=== PATIENT | female | born 1960 | race Hispanic/Latino ===

== ENCOUNTER → 2017-08-26 | Outpatient (CLI) | payer OTHER, MEDICARE | END | disposition home or self-care (01) | LOC: RAH 07:59 | PROVIDERS: ATTEND Family Medicine | DX: R74.8 Abnormal levels of other serum enzymes (principal); Z90.49 Acquired absence of other specified parts of digestive tract | CPT/HCPCS: 76705 ==

== ENCOUNTER → 2017-12-15 | Outpatient (CLI) | payer OTHER, MEDICARE ==
[~2017-12-15] MED LIST: REGADENOSON 0.4 MG/5 ML PF SYG IVP SCH
== END | disposition home or self-care (01) ==
LOC: SHCH 07:44
PROVIDERS: ATTEND Internal Medicine Cardiovascular Disease
DX: I10 Essential (primary) hypertension (principal)
CPT/HCPCS: 78452; 93017; 96374; A9500 ×2; J2785

== ENCOUNTER → 2017-12-26 | Outpatient (CLI) | payer OTHER, MEDICARE | END | disposition home or self-care (01) | LOC: RAH 09:08 | PROVIDERS: ATTEND Internal Medicine Cardiovascular Disease | DX: K76.0 Fatty (change of) liver, not elsewhere classified (principal) | CPT/HCPCS: 76705 ==

== ENCOUNTER → 2018-08-04 | Outpatient (CLI) | payer OTHER, MEDICARE ==
[~2018-08-04] MED LIST changes: +AMLO5TAB9 PO; +IBUP-2070 PO; +INSLAN SQ; +INSU100C14 SQ; +LORA0.5T2 PO; +LOSA100T58 PO; +METF-446 PO; +METO50 PO; -REGADENOSON 0.4 MG/5 ML PF SYG IVP SCH
== END | disposition home or self-care (01) ==
LOC: RAH 08:57
PROVIDERS: ATTEND Internal Medicine Cardiovascular Disease
DX: R60.0 Localized edema (principal)
CPT/HCPCS: 93971

== ENCOUNTER → 2018-12-22 | Outpatient (CLI) | payer OTHER, MEDICARE | END | disposition home or self-care (01) | LOC: SLP 20:20 | PROVIDERS: ATTEND Family Medicine | DX: G47.33 Obstructive sleep apnea (adult) (pediatric) (principal); I10 Essential (primary) hypertension; E11.9 Type 2 diabetes mellitus without complications; E66.9 Obesity, unspecified; Z68.36 Body mass index [BMI] 36.0-36.9, adult | CPT/HCPCS: 95810 ==

== ENCOUNTER → 2019-01-13 | Outpatient (CLI) | payer OTHER, MEDICARE | END | disposition home or self-care (01) | LOC: SLP 19:59 | PROVIDERS: ATTEND Family Medicine | DX: G47.33 Obstructive sleep apnea (adult) (pediatric) (principal); I10 Essential (primary) hypertension; E11.9 Type 2 diabetes mellitus without complications; E66.9 Obesity, unspecified; Z68.36 Body mass index [BMI] 36.0-36.9, adult | CPT/HCPCS: 95811 ==

== ENCOUNTER 2021-01-01 11:49 | Day surgery (SDC) | payer OTHER, MEDICARE ==
[~2021-01-01] VITALS: Ht 160 cm; Wt 90.7 kg
[~2021-01-01 11:49] MED LIST changes: +AMLO-257 PO; -AMLO5TAB9 PO
[2021-01-06] MEDS ORDERED: ROSU5TAB12 PO (13:47)
[2021-01-06] MEDS ORDERED: RISP1TAB98 PO (13:47)
[2021-01-06] MEDS ORDERED: MELO-108 PO (13:47)
[2021-01-06] MEDS ORDERED: CYCL5TAB PO (13:47)
[2021-01-06] MEDS ORDERED: BUSP15TA3 PO (13:47)
[2021-01-06] MEDS ORDERED: SERT-440 PO (13:47)
[2021-01-06] MEDS ORDERED: BENZ0.5T43 PO (13:47)
[2021-01-06] MEDS ORDERED: GABA-529 PO (13:47)
[2021-01-06] MEDS ORDERED: OMEP40CA21 PO (13:47)
[2021-01-06] MEDS ORDERED: INS7030 SQ ×2 (13:47)
[2021-01-06] MEDS ORDERED: ROPI0.257 PO (13:47)
[2021-01-06 14:15] VITALS: BP 179/68
[2021-01-06 14:21] LABS: BASOPHILS % (AUTO) 0.7 % (0.0-5.0); EOSINOPHILS % (AUTO) 2.3 % (0.0-8.0); HEMATOCRIT 33.4 % (36-48); LYMPHOCYTES % (AUTO) 26.6 % (21.0-51.0); MEAN CORPUSCULAR HEMOGLOBIN 28.3 pg (27.0-33.0); MEAN CORPUSCULAR HGB CONC 32.9 g/dL (32.0-36.0); MEAN CORPUSCULAR VOLUME 85.9 fL (79-99); MONOCYTES % (AUTO) 6.3 % (3.0-13.0); NEUTROPHILS % (AUTO) 63.7 % (40.0-77.0); PLATELET COUNT (AUTO) 119 K/uL (130-400); RED BLOOD CELL COUNT(AUTO) 3.89 MIL/uL (4.00-5.50); RED CELL DISTRIBUTION WIDTH 13.5 % (11.0-15.5); WHITE BLOOD COUNT (AUTO) 6.8 K/uL (4.8-10.8)
[2021-01-06 14:23] LABS: APPEARANCE,URINE Clear (CLEAR); BILIRUBIN,URINE Negative (NEGATIVE); COLOR,URINE Yellow (YELLOW); GLUCOSE, URINE (UA) >=1000 mg/dL (NEGATIVE); KETONES,URINE Negative (NEGATIVE); LEUKOCYTE ESTERASE ,URINE Negative (NEGATIVE); NITRATE,URINE Negative (NEGATIVE); OCCULT BLOOD,URINE Negative (NEGATIVE); PH,URINE 5.5 (5.0-8.0); PROTEIN,URINE Negative (NEGATIVE); UROBILINOGEN,URINE 0.2 mg/dL (0.2-1.0)
[2021-01-06 14:30] LABS: BACTERIA,URINE Moderate /HPF (None Seen); RBC,URINE 0-1 /HPF (0-1)
[2021-01-06 14:31] LABS: SQUAMOUS EPITHELIAL CELL,UR Rare /HPF (0-2)
[2021-01-06 14:32] LABS: CREATININE 1.2 mg/dL (0.5-1.5); POTASSIUM 5.2 mmol/L (3.5-5.1)
[2021-01-06 14:33] LABS: PROTHROMBIN TIME 10.9 SEC (9.6-11.6)
[2021-01-06 14:34] LABS: PARTIAL THROMBOPLASTIN TIME 29.8 SEC (26.3-35.5)
[2021-01-07] MEDS ORDERED: 0.9% NACL 500ML IV.SOLN 500 ML IV SCH (06:00)
[2021-01-07] MEDS ORDERED: 0.9%NACL 1000ML 1,000 ML IV ONE (11:20)
[2021-01-07 12:00] VITALS: BP 166/53
[2021-01-07 12:50] LABS: POTASSIUM 5.2 mmol/L (3.5-5.1)
== END 2021-01-07 13:00 | disposition home or self-care (01) ==
LOC: DAH 11:49
PROVIDERS: ATTEND Internal Medicine Cardiovascular Disease
DX: Z01.818 Encounter for other preprocedural examination (principal); R06.00 Dyspnea, unspecified; Z79.01 Long term (current) use of anticoagulants
CPT/HCPCS: 36415 ×2; 71045; 80048 ×2; 81001; 82948; 85025; 85610; 85730; 87077; 87088; 87186; 93005; A4215; A4216; A4221; A4222; A4223 ×3; A4606; A4663; J7030

== ENCOUNTER 2021-02-18 10:21 | Inpatient (IN) | payer OTHER, MEDICARE ==
[2021-02-17 10:00] LABS: BASOPHILS % (AUTO) 0.4 % (0.0-5.0); EOSINOPHILS % (AUTO) 0.7 % (0.0-8.0); HEMATOCRIT 36.5 % (36-48); LYMPHOCYTES % (AUTO) 24.3 % (21.0-51.0); MEAN CORPUSCULAR HEMOGLOBIN 28.8 pg (27.0-33.0); MEAN CORPUSCULAR HGB CONC 32.3 g/dL (32.0-36.0); NEUTROPHILS % (AUTO) 68.8 % (40.0-77.0); PLATELET COUNT (AUTO) 153 K/uL (130-400); RED CELL DISTRIBUTION WIDTH 13.7 % (11.0-15.5); WHITE BLOOD COUNT (AUTO) 9.2 K/uL (4.8-10.8)
[2021-02-17 10:07] LABS: APPEARANCE,URINE Clear (CLEAR); BILIRUBIN,URINE Negative (NEGATIVE); COLOR,URINE Yellow (YELLOW); GLUCOSE, URINE (UA) Negative (NEGATIVE); KETONES,URINE Negative (NEGATIVE); LEUKOCYTE ESTERASE ,URINE Small (NEGATIVE); NITRATE,URINE Positive (NEGATIVE); OCCULT BLOOD,URINE Negative (NEGATIVE); PH,URINE 5.5 (5.0-8.0); PROTEIN,URINE Negative (NEGATIVE); UROBILINOGEN,URINE 0.2 mg/dL (0.2-1.0)
[2021-02-17 10:12] LABS: CREATININE 0.8 mg/dL (0.5-1.5); POTASSIUM 4.8 mmol/L (3.5-5.1)
[2021-02-17 10:13] LABS: INR 0.95 (0.85-1.15); PROTHROMBIN TIME 10.4 SEC (9.6-11.6)
[2021-02-17 10:13] LABS: BACTERIA,URINE Many /HPF (None Seen); RBC,URINE 0-1 /HPF (0-1); SQUAMOUS EPITHELIAL CELL,UR Rare /HPF (0-2)
[2021-02-17 10:14] LABS: PARTIAL THROMBOPLASTIN TIME 27.6 SEC (26.3-35.5)
[2021-02-17 14:47] VITALS: BP 170/80
[~2021-02-18] VITALS: Ht 160 cm; Wt 88.5 kg
[2021-02-18] VITALS (10 sets, daily range): BP systolic 79–156; BP diastolic 33–74
[~2021-02-18 10:21] MED LIST changes: +BENZ0.5T43 PO; +BUSP15TA3 PO; +CYCL5TAB PO; +GABA-529 PO; -IBUP-2070 PO; +INS7030 SQ; -INSLAN SQ; -INSU100C14 SQ; -LORA0.5T2 PO; +MELO-108 PO; +OMEP40CA21 PO; +RISP1TAB98 PO; +ROPI0.257 PO; +ROSU5TAB12 PO; +SERT-440 PO
[2021-02-18] MEDS ORDERED: 0.9%NACL 1000ML 1,000 ML IV ONE (10:44)
[2021-02-18] MEDS ORDERED: DEXTROSE 50%-WATER 50 ML DISP.SYRIN IV ONE ×2 (10:44→14:13)
[2021-02-18] MEDS ORDERED: DEXTROSE 50%-WATER 50 ML DISP.SYRIN IV PRN ×2 (14:30→19:00)
[2021-02-18] MEDS ORDERED: GLUCAGON 1MG KIT 1 MG ML IM PRN ×2 (14:30→19:00)
[2021-02-18] MEDS ORDERED: FENTANYL CITRATE PF 50 MCG/1 ML 2ML VIAL ONE (16:03)
[2021-02-18] MEDS ORDERED: MIDAZOLAM HCL 1 MG/ML 2ML VIAL ONE (16:03)
[2021-02-18] MEDS ORDERED: SODIUM BICARB 50MEQ 50ML VIAL 50 ML ONE (16:03)
[2021-02-18] MEDS ORDERED: IOHEXOL-350 50ML VIAL IV ONE (16:03)
[2021-02-18] MEDS ORDERED: IOHEXOL 350 MG/ML 100ML INFUS..BTL IV ONE (16:03)
[2021-02-18] MEDS ORDERED: LIDOCAINE HCL 400MG/20ML VIAL ONE (16:03)
[2021-02-18] MEDS ORDERED: HEPARIN 10,000 UNIT/10ML (1,000 UNIT/ML) VIAL ONE (16:03)
[2021-02-18] MEDS ORDERED: NITROGLYCERIN 50MG VIAL IV ONE (16:04)
[2021-02-18] MEDS ORDERED: NICARDIPINE 25MG INJ IV ONE (17:08)
[2021-02-18] MEDS ORDERED: LABETALOL 20MG VIAL IV ONE (18:42)
[2021-02-18] MEDS ORDERED: 0.9%NACL 1000ML 1,000 ML IV SCH (19:00)
[2021-02-18] MEDS ORDERED: INSULIN REGULAR, HUMAN 3ML 100 UNIT in 0.9%NACL 100ML 99 ML IV PRN ×4 (19:00)
[2021-02-18] MEDS ORDERED: PHARMACY COMMUNICATION MISC SCH ×2 (19:30→21:00)
[2021-02-18] MEDS ORDERED: INSULIN HUMULIN R 100 UNIT/ML 3ML SQ SCH ×4 (21:00)
[2021-02-18] MEDS ORDERED: INSULIN LISPRO 100 UNIT/ML 3ML SQ SCH ×4 (21:00)
[2021-02-18] MEDS: ROPINIROLE HCL 0.25 MG TABLET PO SCH (21:00)
[2021-02-18] MEDS: METOPROLOL TARTRATE 50 MG TAB PO SCH (21:01)
[2021-02-18] MEDS: RISPERIDONE 1 MG TABLET PO SCH (21:01)
[2021-02-18] MEDS: GABAPENTIN 100 MG CAPSULE PO SCH (21:01)
[2021-02-18] MEDS: BENZTROPINE 0.5MG TAB PO SCH (22:06)
[2021-02-19] MEDS ORDERED: INSULIN HUMULIN R 100 UNIT/ML 3ML SQ SCH ×4
[2021-02-19] MEDS ORDERED: INSULIN LISPRO 100 UNIT/ML 3ML SQ SCH ×4
[2021-02-19 04:10] VITALS: BP 124/68
[2021-02-19 04:21] LABS: BASOPHILS % (AUTO) 0.6 % (0.0-5.0); EOSINOPHILS % (AUTO) 0.6 % (0.0-8.0); HEMATOCRIT 32.1 % (36-48); LYMPHOCYTES % (AUTO) 27.4 % (21.0-51.0); MEAN CORPUSCULAR HEMOGLOBIN 28.7 pg (27.0-33.0); MEAN CORPUSCULAR HGB CONC 32.4 g/dL (32.0-36.0); MEAN CORPUSCULAR VOLUME 88.7 fL (79-99); MONOCYTES % (AUTO) 6.9 % (3.0-13.0); NEUTROPHILS % (AUTO) 64.2 % (40.0-77.0); PLATELET COUNT (AUTO) 125 K/uL (130-400); RED BLOOD CELL COUNT(AUTO) 3.62 MIL/uL (4.00-5.50); RED CELL DISTRIBUTION WIDTH 14.2 % (11.0-15.5); WHITE BLOOD COUNT (AUTO) 6.6 K/uL (4.8-10.8)
[2021-02-19 04:34] LABS: INR 1.04 (0.85-1.15); PROTHROMBIN TIME 11.3 SEC (9.6-11.6)
[2021-02-19 04:36] LABS: PARTIAL THROMBOPLASTIN TIME 26.3 SEC (26.3-35.5)
[2021-02-19 04:37] LABS: CREATININE 1.1 mg/dL (0.5-1.5); MAGNESIUM 1.7 mg/dL (1.80-2.40); PHOSPHORUS 4.2 mg/dL (2.5-4.9); POTASSIUM 4.3 mmol/L (3.5-5.1)
[2021-02-19 05:07] LABS: HEMOGLOBIN A1C 8.4 % (4.0-6.0)
[2021-02-19] MEDS: INSULIN R PO SS1/2 SQ SCH ×4 (06:32→20:59)
[2021-02-19 08:07] VITALS: BP 128/64
[2021-02-19] MEDS: AMLODIPINE 5 MG TAB PO SCH (08:13)
[2021-02-19] MEDS: METOPROLOL TARTRATE 50 MG TAB PO SCH ×2 (08:13→20:49)
[2021-02-19] MEDS: GABAPENTIN 100 MG CAPSULE PO SCH ×2 (08:14→20:49)
[2021-02-19] MEDS: LOSARTAN 100 MG TABLET PO SCH (08:14)
[2021-02-19] MEDS: FAMOTIDINE 20MG TAB PO SCH (08:14)
[2021-02-19 12:06] VITALS: BP 141/65
[2021-02-19 16:21] VITALS: BP 158/73
[2021-02-19 20:00] VITALS: BP 155/64
[2021-02-19] MEDS: ROPINIROLE HCL 0.25 MG TABLET PO SCH (20:48)
[2021-02-19] MEDS: BENZTROPINE 0.5MG TAB PO SCH (20:48)
[2021-02-19] MEDS: RISPERIDONE 1 MG TABLET PO SCH (20:48)
[2021-02-20] VITALS (13 sets, daily range): BP systolic 108–163; BP diastolic 49–67
[2021-02-20 05:34] LABS: HEMATOCRIT 32.6 % (36-48); MEAN CORPUSCULAR HEMOGLOBIN 28.9 pg (27.0-33.0); MEAN CORPUSCULAR HGB CONC 32.2 g/dL (32.0-36.0); MEAN CORPUSCULAR VOLUME 89.8 fL (79-99); RED BLOOD CELL COUNT(AUTO) 3.63 MIL/uL (4.00-5.50); RED CELL DISTRIBUTION WIDTH 13.9 % (11.0-15.5); WHITE BLOOD COUNT (AUTO) 6.3 K/uL (4.8-10.8)
[2021-02-20 05:48] LABS: PROTHROMBIN TIME 10.9 SEC (9.6-11.6)
[2021-02-20 05:49] LABS: PARTIAL THROMBOPLASTIN TIME 26.4 SEC (26.3-35.5)
[2021-02-20 05:50] LABS: ALBUMIN 3.4 g/dL (3.5-5.0); BILIRUBIN,TOTAL 0.3 mg/dL (0.2-1.0); CREATININE 0.9 mg/dL (0.5-1.5); POTASSIUM 4.7 mmol/L (3.5-5.1)
[2021-02-20] MEDS: INSULIN R PO SS1/2 SQ SCH (06:06)
[2021-02-20] MEDS ORDERED: AMINOCAPROIC ACID 5,000MG VIAL 15,000 MG in 0.9% NACL 500ML IV.SOLN 420 ML IV PRN (07:00)
[2021-02-20] MEDS ORDERED: EPINEPHRINE PF 1MG AMP 10 MG in 0.9% NACL 250ML 240 ML IV PRN (07:00)
[2021-02-20] MEDS ORDERED: NOREPINEPHRINE BITARTRATE 8 MG in 0.9% NACL 250ML 250 ML IV PRN (07:00)
[2021-02-20] MEDS: AMLODIPINE 5 MG TAB PO SCH (09:00)
[2021-02-20] MEDS: LOSARTAN 100 MG TABLET PO SCH (09:00)
[2021-02-20] MEDS: FAMOTIDINE 20MG TAB PO SCH (09:00)
[2021-02-20] MEDS: GABAPENTIN 100 MG CAPSULE PO SCH (09:00)
[2021-02-20] MEDS ORDERED: NITROGLYCERIN 50MG/D5W 250ML 1 BOT ONE (09:01)
[2021-02-20] MEDS ORDERED: OCTYL 2-CYANOACRYLATE 1 EACH TP ONE (09:08)
[2021-02-20] MEDS ORDERED: CEFAZOLIN SODIUM 1 GM VIAL ONE (09:08)
[2021-02-20] MEDS ORDERED: PAPAVERINE HCL 30 MG/ML 2ML VIAL ONE (09:09)
[2021-02-20] MEDS: METOPROLOL TARTRATE 50 MG TAB PO SCH (09:13)
[2021-02-20] MEDS ORDERED: HEPARIN 10,000 UNIT/10ML (1,000 UNIT/ML) VIAL ONE ×2 (09:27→11:09)
[2021-02-20] MEDS ORDERED: ESMOLOL HCL 10 MG/ML 10 ML VIAL ONE (09:27)
[2021-02-20] MEDS ORDERED: SODIUM BICARB 50MEQ 50ML VIAL 150 ML ONE (09:27)
[2021-02-20] MEDS ORDERED: PROPOFOL 10 MG/ML 20ML VIAL IV ONE (09:27)
[2021-02-20] MEDS ORDERED: AMINOCAPROIC ACID 5,000MG VIAL ONE (09:27)
[2021-02-20] MEDS ORDERED: MIDAZOLAM HCL 1 MG/ML 2ML VIAL ONE (09:27)
[2021-02-20] MEDS ORDERED: NOREPINEPHRINE BITARTRATE 1 MG/1 ML ML IV ONE (09:27)
[2021-02-20] MEDS ORDERED: FENTANYL CITRATE PF 50 MCG/1 ML 20ML VIAL IJ ONE (09:27)
[2021-02-20] MEDS ORDERED: PROTAMINE SULFATE 10 MG/ML 25ML VIAL IV ONE (09:27)
[2021-02-20] MEDS ORDERED: EPINEPHRINE PF 1MG AMP ONE (09:27)
[2021-02-20] MEDS ORDERED: LIDOCAINE PF 100MG/5ML (2%) SYRINGE 5ML ONE (09:27)
[2021-02-20] MEDS ORDERED: ROCURONIUM 10MG/1ML SYR 10 MG/ML ML ONE (09:28)
[2021-02-20] MEDS ORDERED: CEFAZOLIN SODIUM 1 GM VIAL IVP PRN (09:30)
[2021-02-20] MEDS ORDERED: KETAMINE 50MG/ML SYRINGE 50 MG/ML DISP.SYRIN IV ONE (09:32)
[2021-02-20 11:19] LABS: ABG HCO3 22.9 mmol/L (21.0-28.0); ABG OXYGEN SATURATION 99.5 % (95.0-99.0); ABG PCO2 32 mmHg (32-45)
[2021-02-20] MEDS ORDERED: ACETAMINOPHEN 650 MG SUPPOSITORY RC PRN (13:00)
[2021-02-20] MEDS ORDERED: GLUCAGON 1MG KIT 1 MG ML IM PRN (13:00)
[2021-02-20] MEDS ORDERED: 0.9% NACL 500ML IV.SOLN 500 ML IV SCH (13:00)
[2021-02-20] MEDS ORDERED: ACETAMINOPHEN 325 MG TAB PO PRN (13:00)
[2021-02-20] MEDS ORDERED: DEXTROSE 50%-WATER 50 ML DISP.SYRIN IV PRN (13:00)
[2021-02-20] MEDS ORDERED: 0.9%NACL 1000ML 1,000 ML IV SCH (13:00)
[2021-02-20] MEDS ORDERED: PROPOFOL 1000 MG/100 ML 100 ML IV PRN (13:00)
[2021-02-20] MEDS ORDERED: ALBUMIN (HUMAN) 5% 250 ML IV PRN (13:00)
[2021-02-20] MEDS ORDERED: MORPHINE 2 MG SYG IV PRN ×2 (13:00→14:00)
[2021-02-20] MEDS ORDERED: AMINOCAPROIC ACID 5,000MG VIAL 15,000 MG in 0.9% NACL 250ML 250 ML IV SCH (13:00)
[2021-02-20] MEDS ORDERED: TRAMADOL HCL 50 MG TABLET PO PRN (13:00)
[2021-02-20] MEDS ORDERED: ONDANSETRON 4MG INJ IV PRN (13:00)
[2021-02-20] MEDS ORDERED: POTASSIUM PHOS 15 mMOL+NS250ML 250 ML IV PRN (13:00)
[2021-02-20] MEDS ORDERED: CALCIUM GLUC 1GM 1 GM in 0.9%NACL 50ML 50 ML IV PRN (13:00)
[2021-02-20] MEDS ORDERED: EPINEPHRINE PF 1MG AMP 10 MG in DEXTROSE 5%-WATER 250 ML IV PRN (13:00)
[2021-02-20] MEDS ORDERED: INSULIN REGULAR, HUMAN 3ML 100 UNIT in 0.9%NACL 100ML 99 ML IV SCH ×2 (13:00)
[2021-02-20] MEDS ORDERED: NITROGLYCERIN 50MG/D5W 250ML 250 BOT IV SCH (13:00)
[2021-02-20] MEDS ORDERED: 0.9%NACL 10ML VIAL IVP PRN (13:00)
[2021-02-20] MEDS ORDERED: SODIUM BICARB 50MEQ 50ML VIAL IV PRN (13:00)
[2021-02-20] MEDS ORDERED: NOREPINEPHRIN 4MG/NS 250ML 250 ML IV PRN (13:00)
[2021-02-20] MEDS ORDERED: ASPIRIN 81MG CHEW TAB NG ONE (15:00)
[2021-02-20 15:11] LABS: ABG BASE EXCESS -7.6 mmol/L (-2.0-3.0); ABG HCO3 17.1 mmol/L (21.0-28.0); ABG OXYGEN SATURATION 99.1 % (95.0-99.0); ABG PCO2 32 mmHg (32-45)
[2021-02-20 15:59] LABS: HEMATOCRIT 25.7 % (36-48); MEAN CORPUSCULAR HEMOGLOBIN 29.2 pg (27.0-33.0); MEAN CORPUSCULAR HGB CONC 33.1 g/dL (32.0-36.0); MEAN CORPUSCULAR VOLUME 88.3 fL (79-99); RED BLOOD CELL COUNT(AUTO) 2.91 MIL/uL (4.00-5.50); RED CELL DISTRIBUTION WIDTH 13.9 % (11.0-15.5); WHITE BLOOD COUNT (AUTO) 25.1 K/uL (4.8-10.8)
[2021-02-20] MEDS ORDERED: PROTAMINE SULFATE 10 MG/ML 5 ML VIAL IVP SCH (16:00)
[2021-02-20 16:15] LABS: INR 1.21 (0.85-1.15)
[2021-02-20 16:17] LABS: CREATININE 0.8 mg/dL (0.5-1.5); MAGNESIUM 1.1 mg/dL (1.80-2.40); PARTIAL THROMBOPLASTIN TIME 29.4 SEC (26.3-35.5); PHOSPHORUS 3.3 mg/dL (2.5-4.9); POTASSIUM 3.2 mmol/L (3.5-5.1)
[2021-02-20 16:29] LABS: ABG HCO3 23.9 mmol/L (21.0-28.0); ABG OXYGEN SATURATION 98.4 % (95.0-99.0); ABG PCO2 41 mmHg (32-45)
[2021-02-20 16:32] LABS: ABG OXYGEN SATURATION 72.4 % (95.0-99.0); BASE EXCESS,VENOUS BLOOD GAS -1.5 (-2.0-3.0); HCO3,VENOUS BLOOD GAS 23.6 (21.0-28.0); PCO2,VENOUS BLOOD GAS 41 (32-45); PH,VENOUS BLOOD GAS 7.377 (7.350-7.450)
[2021-02-20] MEDS: POTASSIUM CHLORIDE 20MEQ/100ML 100 ML IV PRN ×3 (16:47→21:03)
[2021-02-20] MEDS: MAGNESIUM 2GM PREMIX 50ML 50 ML IV PRN (16:51)
[2021-02-20] MEDS: CEFAZOLIN SODIUM 1 GM VIAL IV SCH (17:24)
[2021-02-20 17:32] LABS: ABG BASE EXCESS -0.2 mmol/L (-2.0-3.0); ABG HCO3 23.8 mmol/L (21.0-28.0); ABG OXYGEN SATURATION 97.8 % (95.0-99.0); ABG PCO2 36 mmHg (32-45)
[2021-02-20 19:22] LABS: ABG BASE EXCESS -0.8 mmol/L (-2.0-3.0); ABG HCO3 24.5 mmol/L (21.0-28.0); ABG OXYGEN SATURATION 97.6 % (95.0-99.0); ABG PCO2 43 mmHg (32-45)
[2021-02-20] MEDS: FAMOTIDINE 20MG VIAL IV SCH (19:59)
[2021-02-20 20:41] LABS: ABG BASE EXCESS -0.1 mmol/L (-2.0-3.0); ABG HCO3 24.7 mmol/L (21.0-28.0); ABG PCO2 41 mmHg (32-45)
[2021-02-20] MEDS: BENZTROPINE 0.5MG TAB PO SCH (21:00)
[2021-02-20 22:03] LABS: ABG BASE EXCESS -1.1 mmol/L (-2.0-3.0); ABG HCO3 24.3 mmol/L (21.0-28.0); ABG OXYGEN SATURATION 95.2 % (95.0-99.0); ABG PCO2 43 mmHg (32-45)
[2021-02-20] MEDS ORDERED: ALBUMIN (HUMAN) 5% 250 ML IV ONE (22:06)
[2021-02-20] MEDS: TRAMADOL HCL 50 MG TABLET PO PRN (22:59)
[2021-02-20] MEDS: ROPINIROLE HCL 0.25 MG TABLET PO SCH (23:02)
[2021-02-21] VITALS (24 sets, daily range): BP systolic 91–170; BP diastolic 48–83
[2021-02-21] MEDS ORDERED: 0.9%NACL 100ML 100 ML ONE (02:12)
[2021-02-21] MEDS: CEFAZOLIN SODIUM 1 GM VIAL IV SCH ×2 (02:13→09:23)
[2021-02-21 03:59] LABS: HEMATOCRIT 25.2 % (36-48); MEAN CORPUSCULAR HEMOGLOBIN 28.8 pg (27.0-33.0); MEAN CORPUSCULAR HGB CONC 32.5 g/dL (32.0-36.0); MEAN CORPUSCULAR VOLUME 88.4 fL (79-99); RED BLOOD CELL COUNT(AUTO) 2.85 MIL/uL (4.00-5.50); RED CELL DISTRIBUTION WIDTH 14.2 % (11.0-15.5); WHITE BLOOD COUNT (AUTO) 9.8 K/uL (4.8-10.8)
[2021-02-21 04:10] LABS: CREATININE 0.9 mg/dL (0.5-1.5); MAGNESIUM 1.7 mg/dL (1.80-2.40); PHOSPHORUS 3.3 mg/dL (2.5-4.9); POTASSIUM 4.1 mmol/L (3.5-5.1)
[2021-02-21 04:13] LABS: INR 1.05 (0.85-1.15); PROTHROMBIN TIME 11.4 SEC (9.6-11.6)
[2021-02-21 04:15] LABS: PARTIAL THROMBOPLASTIN TIME 27.9 SEC (26.3-35.5)
[2021-02-21] MEDS: MAGNESIUM 2GM PREMIX 50ML 50 ML IV PRN (04:47)
[2021-02-21] MEDS: TRAMADOL HCL 50 MG TABLET PO PRN ×3 (05:09→20:34)
[2021-02-21] MEDS: POTASSIUM CHLORIDE 20MEQ/100ML 100 ML IV PRN (06:19)
[2021-02-21] MEDS ORDERED: PHARMACY COMMUNICATION MISC SCH ×2 (08:30→22:00)
[2021-02-21] MEDS ORDERED: LOSARTAN 25 MG TABLET PO SCH (09:00)
[2021-02-21] MEDS: FAMOTIDINE 20MG VIAL IV SCH ×2 (09:23→20:15)
[2021-02-21] MEDS: METOPROLOL TARTRATE 25 MG TAB PO SCH ×2 (09:23→20:15)
[2021-02-21] MEDS: ASPIRIN 81 MG EC TAB PO SCH (09:23)
[2021-02-21] MEDS: FUROSEMIDE 20 MG TABLET PO SCH ×2 (09:23→16:19)
[2021-02-21] MEDS: ATORVASTATIN 10 MG TABLET PO SCH (20:15)
[2021-02-21] MEDS: ROPINIROLE HCL 0.25 MG TABLET PO SCH (20:29)
[2021-02-21] MEDS: BENZTROPINE 0.5MG TAB PO SCH (20:29)
[2021-02-22] VITALS (12 sets, daily range): BP systolic 117–172; BP diastolic 44–76
[2021-02-22] MEDS: TRAMADOL HCL 50 MG TABLET PO PRN ×3 (02:02→17:17)
[2021-02-22 03:32] LABS: HEMATOCRIT 23.2 % (36-48); MEAN CORPUSCULAR HEMOGLOBIN 28.8 pg (27.0-33.0); MEAN CORPUSCULAR HGB CONC 32.3 g/dL (32.0-36.0); MEAN CORPUSCULAR VOLUME 89.2 fL (79-99); RED BLOOD CELL COUNT(AUTO) 2.6 MIL/uL (4.00-5.50); RED CELL DISTRIBUTION WIDTH 14.4 % (11.0-15.5); WHITE BLOOD COUNT (AUTO) 10.8 K/uL (4.8-10.8)
[2021-02-22 04:11] LABS: CREATININE 0.9 mg/dL (0.5-1.5); MAGNESIUM 1.7 mg/dL (1.80-2.40); POTASSIUM 3.8 mmol/L (3.5-5.1)
[2021-02-22] MEDS: MAGNESIUM 2GM PREMIX 50ML 50 ML IV PRN (04:45)
[2021-02-22] MEDS: INSULIN HUMULIN R 100 UNIT/ML 3ML SQ SCH ×6 (06:43→20:34)
[2021-02-22] MEDS: POTASSIUM CHLORIDE 20MEQ/100ML 100 ML IV PRN (06:47)
[2021-02-22] MEDS ORDERED: INSULIN HUMULIN 70/30 100 UNIT/ML 3ML SQ SCH (07:30)
[2021-02-22] MEDS ORDERED: INSULIN GLARGINE 100 UNITS/ML 10 ML VIAL SQ SCH (09:00)
[2021-02-22] MEDS: FAMOTIDINE 20MG VIAL IV SCH ×2 (09:07→20:06)
[2021-02-22] MEDS: ASPIRIN 81 MG EC TAB PO SCH (09:07)
[2021-02-22] MEDS: FUROSEMIDE 20 MG TABLET PO SCH ×2 (09:08→17:17)
[2021-02-22] MEDS: RISPERIDONE 1 MG TABLET PO SCH (09:08)
[2021-02-22] MEDS: METOPROLOL TARTRATE 25 MG TAB PO SCH ×2 (09:08→20:06)
[2021-02-22] MEDS ORDERED: LOSARTAN 25 MG TABLET PO SCH (11:30)
[2021-02-22] MEDS ORDERED: ENOXAPARIN SODIUM 30 MG/0.3 ML SQ SCH (11:30)
[2021-02-22] MEDS: ATORVASTATIN 10 MG TABLET PO SCH (20:05)
[2021-02-22] MEDS: BENZTROPINE 0.5MG TAB PO SCH (20:06)
[2021-02-22] MEDS: ROPINIROLE HCL 0.25 MG TABLET PO SCH (20:06)
[2021-02-23] VITALS (7 sets, daily range): BP systolic 120–147; BP diastolic 57–76
[2021-02-23 03:35] LABS: HEMATOCRIT 22.4 % (36-48); MEAN CORPUSCULAR HEMOGLOBIN 29.6 pg (27.0-33.0); MEAN CORPUSCULAR VOLUME 89.6 fL (79-99); RED BLOOD CELL COUNT(AUTO) 2.5 MIL/uL (4.00-5.50); RED CELL DISTRIBUTION WIDTH 14.6 % (11.0-15.5); WHITE BLOOD COUNT (AUTO) 9.9 K/uL (4.8-10.8)
[2021-02-23 03:48] LABS: CREATININE 0.9 mg/dL (0.5-1.5); POTASSIUM 3.4 mmol/L (3.5-5.1)
[2021-02-23] MEDS: INSULIN HUMULIN R 100 UNIT/ML 3ML SQ SCH ×7 (06:16→21:55)
[2021-02-23] MEDS ORDERED: KCL 20 MEQ ERTAB PO ONE (07:16)
[2021-02-23] MEDS: LOSARTAN 50 MG TABLET PO SCH (08:03)
[2021-02-23] MEDS: ASPIRIN 81 MG EC TAB PO SCH (08:03)
[2021-02-23] MEDS: FAMOTIDINE 20MG VIAL IV SCH ×2 (08:03→21:46)
[2021-02-23] MEDS: RISPERIDONE 1 MG TABLET PO SCH (08:03)
[2021-02-23] MEDS: METOPROLOL TARTRATE 25 MG TAB PO SCH ×2 (08:04→21:50)
[2021-02-23] MEDS: FUROSEMIDE 20 MG TABLET PO SCH ×2 (08:04→17:21)
[2021-02-23] MEDS: ENOXAPARIN SODIUM 30 MG/0.3 ML SQ SCH (08:05)
[2021-02-23] MEDS ORDERED: INSULIN GLARGINE 100 UNITS/ML 10 ML VIAL SQ SCH (09:00)
[2021-02-23] MEDS: BENZTROPINE 0.5MG TAB PO SCH (21:46)
[2021-02-23] MEDS: ROPINIROLE HCL 0.25 MG TABLET PO SCH (21:50)
[2021-02-23] MEDS: INSULIN GLARGINE 100 UNITS/ML 10 ML VIAL SQ SCH (21:54)
[2021-02-23] MEDS: ATORVASTATIN 10 MG TABLET PO SCH (21:59)
[2021-02-24 00:03] VITALS: BP 141/60
[2021-02-24 04:31] VITALS: BP 157/76
[2021-02-24 04:59] LABS: HEMATOCRIT 21.6 % (36-48); MEAN CORPUSCULAR HGB CONC 32.9 g/dL (32.0-36.0); MEAN CORPUSCULAR VOLUME 88.2 fL (79-99); RED BLOOD CELL COUNT(AUTO) 2.45 MIL/uL (4.00-5.50); RED CELL DISTRIBUTION WIDTH 14.2 % (11.0-15.5); WHITE BLOOD COUNT (AUTO) 8.1 K/uL (4.8-10.8)
[2021-02-24 05:11] LABS: CREATININE 0.8 mg/dL (0.5-1.5); POTASSIUM 3.1 mmol/L (3.5-5.1)
[2021-02-24] MEDS: INSULIN HUMULIN R 100 UNIT/ML 3ML SQ SCH ×7 (06:00→20:08)
[2021-02-24 07:00] VITALS: BP 131/68
[2021-02-24] MEDS: FAMOTIDINE 20MG VIAL IV SCH ×2 (08:58→20:08)
[2021-02-24] MEDS: ASPIRIN 81 MG EC TAB PO SCH (08:59)
[2021-02-24] MEDS ORDERED: KCL 20 MEQ ERTAB PO ONE ×2 (09:00→16:00)
[2021-02-24] MEDS: FUROSEMIDE 20 MG TABLET PO SCH ×2 (09:04→15:59)
[2021-02-24] MEDS: RISPERIDONE 1 MG TABLET PO SCH (09:05)
[2021-02-24] MEDS: INSULIN GLARGINE 100 UNITS/ML 10 ML VIAL SQ SCH (09:10)
[2021-02-24] MEDS: ENOXAPARIN SODIUM 30 MG/0.3 ML SQ SCH (09:13)
[2021-02-24] MEDS: LOSARTAN 50 MG TABLET PO SCH (09:20)
[2021-02-24] MEDS: METOPROLOL TARTRATE 25 MG TAB PO SCH ×2 (09:20→20:08)
[2021-02-24] MEDS ORDERED: KCL 20 MEQ ERTAB PO SCH ×2 (09:30→13:00)
[2021-02-24 11:00] VITALS: BP 148/78
[2021-02-24] MEDS: MAGNESIUM 2GM PREMIX 50ML 50 ML IV PRN (11:06)
[2021-02-24] MEDS ORDERED: KCL 20 MEQ ERTAB PO PRN (15:00)
[2021-02-24] MEDS: BENZTROPINE 0.5MG TAB PO SCH (20:08)
[2021-02-24] MEDS: ATORVASTATIN 10 MG TABLET PO SCH (20:08)
[2021-02-24] MEDS: ROPINIROLE HCL 0.25 MG TABLET PO SCH (20:08)
[2021-02-24 20:36] VITALS: BP 120/59
[2021-02-24] MEDS ORDERED: INSULIN GLARGINE 100 UNITS/ML 10 ML VIAL SQ SCH ×2 (21:00)
[2021-02-24 23:48] VITALS: BP 111/46
[2021-02-25 04:17] VITALS: BP 127/50
[2021-02-25 06:15] LABS: BASOPHILS % (AUTO) 0.4 % (0.0-5.0); EOSINOPHILS % (AUTO) 0.6 % (0.0-8.0); HEMATOCRIT 22.5 % (36-48); LYMPHOCYTES % (AUTO) 18.1 % (21.0-51.0); MEAN CORPUSCULAR HEMOGLOBIN 28.4 pg (27.0-33.0); MEAN CORPUSCULAR HGB CONC 31.6 g/dL (32.0-36.0); MONOCYTES % (AUTO) 8.1 % (3.0-13.0); NEUTROPHILS % (AUTO) 69.7 % (40.0-77.0); PLATELET COUNT (AUTO) 129 K/uL (130-400); RED CELL DISTRIBUTION WIDTH 14.5 % (11.0-15.5); WHITE BLOOD COUNT (AUTO) 6.7 K/uL (4.8-10.8)
[2021-02-25 06:27] LABS: CREATININE 0.8 mg/dL (0.5-1.5); MAGNESIUM 1.9 mg/dL (1.80-2.40); POTASSIUM 3.8 mmol/L (3.5-5.1)
[2021-02-25] MEDS: INSULIN HUMULIN R 100 UNIT/ML 3ML SQ SCH ×8 (06:28→21:20)
[2021-02-25] MEDS: MAGNESIUM 2GM PREMIX 50ML 50 ML IV PRN (06:42)
[2021-02-25] MEDS: METOPROLOL TARTRATE 25 MG TAB PO SCH ×2 (08:44→20:06)
[2021-02-25] MEDS: SERTRALINE HCL 50 MG TABLET PO SCH (08:44)
[2021-02-25] MEDS: FUROSEMIDE 20 MG TABLET PO SCH ×2 (08:44→16:25)
[2021-02-25] MEDS: FAMOTIDINE 20MG TAB PO SCH ×2 (08:44→20:06)
[2021-02-25] MEDS: LOSARTAN 50 MG TABLET PO SCH (08:45)
[2021-02-25] MEDS: RISPERIDONE 1 MG TABLET PO SCH (08:45)
[2021-02-25] MEDS: ASPIRIN 81 MG EC TAB PO SCH (08:45)
[2021-02-25] MEDS: ENOXAPARIN SODIUM 30 MG/0.3 ML SQ SCH (08:49)
[2021-02-25] MEDS: INSULIN GLARGINE 100 UNITS/ML 10 ML VIAL SQ SCH ×2 (08:52→21:17)
[2021-02-25 09:00] VITALS: BP 133/67
[2021-02-25] MEDS: BUSPIRONE HCL 5 MG TABLET PO SCH ×2 (13:34→20:11)
[2021-02-25 15:02] VITALS: BP 130/69
[2021-02-25 19:47] VITALS: BP_SYST 118; BP_SYST 18; BP_DIAS 52
[2021-02-25] MEDS: ATORVASTATIN 10 MG TABLET PO SCH (20:06)
[2021-02-25] MEDS: ROPINIROLE HCL 0.25 MG TABLET PO SCH (20:06)
[2021-02-25] MEDS: BENZTROPINE 0.5MG TAB PO SCH (20:06)
[2021-02-25 23:52] VITALS: BP 119/47
[2021-02-26 04:15] VITALS: BP 125/52
[2021-02-26] MEDS: INSULIN HUMULIN R 100 UNIT/ML 3ML SQ SCH ×3 (06:16→11:23)
[2021-02-26 06:24] LABS: BASOPHILS % (AUTO) 0.4 % (0.0-5.0); EOSINOPHILS % (AUTO) 0.8 % (0.0-8.0); HEMATOCRIT 21.9 % (36-48); LYMPHOCYTES % (AUTO) 17.1 % (21.0-51.0); MEAN CORPUSCULAR HEMOGLOBIN 28.9 pg (27.0-33.0); MEAN CORPUSCULAR HGB CONC 32.9 g/dL (32.0-36.0); MONOCYTES % (AUTO) 8.6 % (3.0-13.0); NEUTROPHILS % (AUTO) 69.4 % (40.0-77.0); NUCLEATED RED BLOOD CELLS 0.7 % (0.0-0.19); PLATELET COUNT (AUTO) 149 K/uL (130-400); RED BLOOD CELL COUNT(AUTO) 2.49 MIL/uL (4.00-5.50); RED CELL DISTRIBUTION WIDTH 14.7 % (11.0-15.5); WHITE BLOOD COUNT (AUTO) 7.1 K/uL (4.8-10.8)
[2021-02-26 06:56] LABS: CREATININE 0.8 mg/dL (0.5-1.5); MAGNESIUM 1.7 mg/dL (1.80-2.40); POTASSIUM 3.3 mmol/L (3.5-5.1)
[2021-02-26 07:55] VITALS: BP 132/66
[2021-02-26] MEDS: METOPROLOL TARTRATE 25 MG TAB PO SCH (08:17)
[2021-02-26] MEDS: RISPERIDONE 1 MG TABLET PO SCH (08:17)
[2021-02-26] MEDS: FAMOTIDINE 20MG TAB PO SCH (08:17)
[2021-02-26] MEDS: LOSARTAN 50 MG TABLET PO SCH (08:18)
[2021-02-26] MEDS: BUSPIRONE HCL 5 MG TABLET PO SCH ×2 (08:18→14:03)
[2021-02-26] MEDS: SERTRALINE HCL 50 MG TABLET PO SCH (08:18)
[2021-02-26] MEDS: FUROSEMIDE 20 MG TABLET PO SCH (08:18)
[2021-02-26] MEDS: ASPIRIN 81 MG EC TAB PO SCH (08:19)
[2021-02-26] MEDS: ENOXAPARIN SODIUM 30 MG/0.3 ML SQ SCH (08:20)
[2021-02-26] MEDS: INSULIN GLARGINE 100 UNITS/ML 10 ML VIAL SQ SCH (08:24)
[2021-02-26] MEDS ORDERED: LIDOCAINE HCL-MPF 1% 2ML VIAL IV PRN (08:30)
[2021-02-26] MEDS ORDERED: MAGNESIUM 2GM PREMIX 50ML 50 ML IV SCH (08:30)
[2021-02-26] MEDS ORDERED: POTASSIUM CHLORIDE 10% ELIXIR 20 MEQ/15 ML UDCUP PO PRN (08:30)
[2021-02-26] MEDS ORDERED: POTASSIUM CHLORIDE 20MEQ/100ML 100 ML IV PRN (08:30)
[2021-02-26] MEDS: KCL 20 MEQ ERTAB PO PRN ×3 (08:45→11:26)
[2021-02-26] MEDS ORDERED: INSULIN HUMULIN R 100 UNIT/ML 3ML SQ SCH ×2 (11:30→17:00)
[2021-02-26] MEDS ORDERED: FERROUS SULFATE 325 MG TABLET.DR PO SCH (11:30)
[2021-02-26 11:34] VITALS: BP 127/72
[2021-02-26] MEDS ORDERED: INSULIN GLARGINE 100 UNITS/ML 10 ML VIAL SQ SCH (21:00)
== END 2021-02-26 15:51 | DRG 233 ==
LOC: DAH 10:21 → OBSVTOIN 10:22 → DAH 10:22 → 4DH 10:22 → 2CV 02-20 14:20 → 2CH 02-21 06:00 → 2AH 02-23 04:37
PROVIDERS: ADMIT Internal Medicine Cardiovascular Disease; ATTEND Internal Medicine Cardiovascular Disease
PROC: 4A023N7 Measurement of Cardiac Sampling and Pressure, Left Heart, Percutaneous Approach (ICD-10-PCS; 2021-02-18)
PROC: B2111ZZ Fluoroscopy of Multiple Coronary Arteries using Low Osmolar Contrast (ICD-10-PCS; 2021-02-18)
PROC: B2151ZZ Fluoroscopy of Left Heart using Low Osmolar Contrast (ICD-10-PCS; 2021-02-18)
PROC: 06BQ4ZZ Excision of Left Saphenous Vein, Percutaneous Endoscopic Approach (ICD-10-PCS; 2021-02-20)
PROC: 02100Z9 Bypass Coronary Artery, One Artery from Left Internal Mammary, Open Approach (ICD-10-PCS; principal; 2021-02-20 10:00)
PROC: 021209W Bypass Coronary Artery, Three Arteries from Aorta with Autologous Venous Tissue, Open Approach (ICD-10-PCS; 2021-02-20 10:00)
DX: I21.4 Non-ST elevation (NSTEMI) myocardial infarction (principal); I50.33 Acute on chronic diastolic (congestive) heart failure; J95.1 Acute pulmonary insufficiency following thoracic surgery; I25.110 Atherosclerotic heart disease of native coronary artery with unstable angina pectoris; E78.5 Hyperlipidemia, unspecified; E11.649 Type 2 diabetes mellitus with hypoglycemia without coma; E78.00 Pure hypercholesterolemia, unspecified; F31.9 Bipolar disorder, unspecified; E87.6 Hypokalemia; E11.65 Type 2 diabetes mellitus with hyperglycemia; Z20.822 Contact with and (suspected) exposure to COVID-19; M19.90 Unspecified osteoarthritis, unspecified site; E11.42 Type 2 diabetes mellitus with diabetic polyneuropathy; E66.01 Morbid (severe) obesity due to excess calories; Z68.34 Body mass index [BMI] 34.0-34.9, adult; I65.23 Occlusion and stenosis of bilateral carotid arteries; E87.70 Fluid overload, unspecified; E88.81 Metabolic syndrome and other insulin resistance; I11.0 Hypertensive heart disease with heart failure; Z90.49 Acquired absence of other specified parts of digestive tract; Z79.4 Long term (current) use of insulin; Z79.899 Other long term (current) drug therapy; Z83.3 Family history of diabetes mellitus; Z82.49 Family history of ischemic heart disease and other diseases of the circulatory system
CPT/HCPCS: 36415; 36600; 71045; 80048; 80053; 81001; 82435; 82803; 82947; 82948; 83036; 83605; 83735; 84100; 84132; 84295; 85018; 85025; 85027; 85347; 85384; 85610; 85730; 86850; 86900; 86901; 86923; 87077; 87088; 87186; 87635; 93005; 93458; 93880; 94002; 94010; 96374; 97039; 99156; 99157; A4606; A7048; G0378; J0171; J0690; J1644; J1650; J1815; J2001; J2250; J2405; J2440; J2704; J2720; J3010; J3475; J3480; J3490; J7030; J7040; J7070; J7120; P9045; Q9967

== ENCOUNTER 2021-03-31 13:36 | Emergency (ER) | payer OTHER, MEDICARE ==
[~2021-03-31] VITALS: Ht 157.5 cm; Wt 124.7 kg
[~2021-03-31 13:36] MED LIST changes: -MELO-108 PO
[2021-03-31 13:55] LABS: BASOPHILS % (AUTO) 0.5 % (0.0-5.0); EOSINOPHILS % (AUTO) 0.1 % (0.0-8.0); HEMATOCRIT 34.8 % (36-48); LYMPHOCYTES % (AUTO) 13.2 % (21.0-51.0); MEAN CORPUSCULAR HGB CONC 30.5 g/dL (32.0-36.0); MEAN CORPUSCULAR VOLUME 88.8 fL (79-99); MONOCYTES % (AUTO) 9.5 % (3.0-13.0); NEUTROPHILS % (AUTO) 76.2 % (40.0-77.0); PLATELET COUNT (AUTO) 130 K/uL (130-400); RED BLOOD CELL COUNT(AUTO) 3.92 MIL/uL (4.00-5.50); RED CELL DISTRIBUTION WIDTH 14.7 % (11.0-15.5); WHITE BLOOD COUNT (AUTO) 7.9 K/uL (4.8-10.8)
[2021-03-31] MEDS ORDERED: DEXTROSE 50%-WATER 50 ML DISP.SYRIN IV ONE ×2 (14:00)
[2021-03-31 14:05] LABS: ALBUMIN 3.4 g/dL (3.5-5.0); BILIRUBIN,TOTAL 0.2 mg/dL (0.2-1.0); CREATININE 0.8 mg/dL (0.5-1.5); POTASSIUM 3.9 mmol/L (3.5-5.1); TOTAL PROTEIN, SERUM 7.7 g/dL (6.0-8.3)
[2021-03-31 14:44] VITALS: BP 142/68
== END 2021-03-31 16:53 | disposition home or self-care (01) ==
LOC: EDH 13:36
DX: E10.649 Type 1 diabetes mellitus with hypoglycemia without coma (principal); R53.83 Other fatigue; I10 Essential (primary) hypertension; Z79.899 Other long term (current) drug therapy
CPT/HCPCS: 36415; 80053; 82948 ×4; 85025; 96374; 99283; J7070

== ENCOUNTER → 2022-03-09 | Outpatient (CLI) | payer OTHER, MEDICARE | END | disposition home or self-care (01) | LOC: RAH 09:51 | PROVIDERS: ATTEND Internal Medicine Cardiovascular Disease | DX: K76.0 Fatty (change of) liver, not elsewhere classified (principal); R94.5 Abnormal results of liver function studies; K83.8 Other specified diseases of biliary tract | CPT/HCPCS: 76705 ==

== ENCOUNTER 2022-06-06 18:17 | Emergency (ER) | payer OTHER, MEDICARE ==
[~2022-06-06] VITALS: Ht 157.5 cm; Wt 72.6 kg
[2022-06-06 18:59] LABS: BASOPHILS % (AUTO) 0.5 % (0.0-5.0); EOSINOPHILS % (AUTO) 0.2 % (0.0-8.0); HEMATOCRIT 31.7 % (36-48); LYMPHOCYTES % (AUTO) 6.2 % (21.0-51.0); MEAN CORPUSCULAR HEMOGLOBIN 25.9 pg (27.0-33.0); MEAN CORPUSCULAR HGB CONC 31.9 g/dL (32.0-36.0); MEAN CORPUSCULAR VOLUME 81.3 fL (79-99); MONOCYTES % (AUTO) 1.9 % (3.0-13.0); NEUTROPHILS % (AUTO) 90.5 % (40.0-77.0); PLATELET COUNT (AUTO) 146 K/uL (130-400); RED CELL DISTRIBUTION WIDTH 19.5 % (11.0-15.5)
[2022-06-06 19:11] LABS: CREATININE 1.2 mg/dL (0.5-1.5); POTASSIUM 3.4 mmol/L (3.5-5.1)
[2022-06-06 19:16] LABS: ALBUMIN 2.8 g/dL (3.5-5.0); TOTAL PROTEIN, SERUM 6.9 g/dL (6.0-8.3)
[2022-06-06 19:44] LABS: APPEARANCE,URINE CLOUDY (CLEAR); BILIRUBIN,URINE NEGATIVE (NEGATIVE); COLOR,URINE YELLOW (YELLOW); GLUCOSE, URINE (UA) NEGATIVE (NEGATIVE); KETONES,URINE NEGATIVE (NEGATIVE); LEUKOCYTE ESTERASE ,URINE 500 Leu/uL (NEGATIVE); NITRATE,URINE NEGATIVE (NEGATIVE); OCCULT BLOOD,URINE SMALL (NEGATIVE); PH,URINE 5.5 (5.0-8.0); PROTEIN,URINE 30 mg/dL (NEGATIVE); UROBILINOGEN,URINE 0.2 mg/dL (0.2-1.0)
[2022-06-06 19:50] LABS: BACTERIA,URINE MOD /HPF (None Seen); MUCUS,URINE RARE LPF (None Seen); SQUAMOUS EPITHELIAL CELL,UR FEW /HPF (0-2); WBC,URINE TNTC /HPF (0-1)
[2022-06-06] MEDS ORDERED: DEXTROSE 50%-WATER 50 ML DISP.SYRIN IV ONE ×2 (20:51→21:00)
[2022-06-06] MEDS ORDERED: CEFTRIAXONE 1G VIAL IVP STA (20:54)
[2022-06-06] MEDS ORDERED: CEFTRIAXONE 1G VIAL ONE (21:05)
[2022-06-06] MEDS ORDERED: CEPH500B PO (21:07)
[2022-06-06 22:11] VITALS: BP 136/62
== END 2022-06-06 22:15 | disposition home or self-care (01) ==
LOC: EDH 18:17
DX: N39.0 Urinary tract infection, site not specified (principal); E11.649 Type 2 diabetes mellitus with hypoglycemia without coma; I10 Essential (primary) hypertension; E78.00 Pure hypercholesterolemia, unspecified; Z79.899 Other long term (current) drug therapy; Z20.822 Contact with and (suspected) exposure to COVID-19
CPT/HCPCS: 99284; 96365; 71045; 87635; 96375; 80053; 85025; 87077; 87088; 87186; 87804 ×2; 82948 ×3; 81001; 36415; C9803; J7070; J0696

== ENCOUNTER 2022-07-28 12:24 | Observation (INO) | payer OTHER, MEDICARE ==
[~2022-07-28] VITALS: Ht 157.5 cm; Wt 88.7 kg
[~2022-07-28 12:24] MED LIST changes: -BENZ0.5T43 PO; +BENZ0.5T6 PO; +CEPH500B PO; -LOSA100T58 PO; +LOSA100T59 PO
[2022-07-28 12:46] LABS: BASOPHILS % (AUTO) 0.3 % (0.0-5.0); EOSINOPHILS % (AUTO) 0.1 % (0.0-8.0); HEMATOCRIT 34.8 % (36-48); LYMPHOCYTES % (AUTO) 15.1 % (21.0-51.0); MEAN CORPUSCULAR HEMOGLOBIN 27.9 pg (27.0-33.0); MEAN CORPUSCULAR HGB CONC 33.9 g/dL (32.0-36.0); MEAN CORPUSCULAR VOLUME 82.3 fL (79-99); MONOCYTES % (AUTO) 5.7 % (3.0-13.0); NEUTROPHILS % (AUTO) 78.3 % (40.0-77.0); PLATELET COUNT (AUTO) 187 K/uL (130-400); RED BLOOD CELL COUNT(AUTO) 4.23 MIL/uL (4.00-5.50); RED CELL DISTRIBUTION WIDTH 16.8 % (11.0-15.5); WHITE BLOOD COUNT (AUTO) 14.8 K/uL (4.8-10.8)
[2022-07-28 13:04] LABS: ALBUMIN 3.1 g/dL (3.5-5.0); CREATININE 1.2 mg/dL (0.5-1.5); POTASSIUM 4.4 mmol/L (3.5-5.1); TOTAL PROTEIN, SERUM 7.4 g/dL (6.0-8.3)
[2022-07-28] MEDS ORDERED: 0.9%NACL 1000ML 1,000 ML IV ONE (13:30)
[2022-07-28] MEDS ORDERED: IOHEXOL-350 75 ML VIAL IV ONE ×2 (13:37)
[2022-07-28] MEDS ORDERED: ZOSYN 3.375GM +NS 50ML IVPB ONE (14:00)
[2022-07-28 14:19] LABS: BASE EXCESS,VENOUS BLOOD GAS -2.6 (-2.0-3.0); HCO3,VENOUS BLOOD GAS 21.6 (21.0-28.0); PCO2,VENOUS BLOOD GAS 36 (32-45); PH,VENOUS BLOOD GAS 7.395 (7.350-7.450)
[2022-07-28 14:29] LABS: APPEARANCE,URINE CLEAR (CLEAR); BILIRUBIN,URINE NEGATIVE (NEGATIVE); COLOR,URINE COLORLESS (YELLOW); GLUCOSE, URINE (UA) TRACE mg/dL (NEGATIVE); KETONES,URINE NEGATIVE (NEGATIVE); LEUKOCYTE ESTERASE ,URINE NEGATIVE Leu/uL (NEGATIVE); NITRATE,URINE NEGATIVE (NEGATIVE); OCCULT BLOOD,URINE NEGATIVE (NEGATIVE); PROTEIN,URINE 10 mg/dL (NEGATIVE); UROBILINOGEN,URINE 0.2 mg/dL (0.2-1.0)
[2022-07-28 14:58] LABS: BACTERIA,URINE FEW /HPF (None Seen); MUCUS,URINE RARE LPF (None Seen); SQUAMOUS EPITHELIAL CELL,UR RARE /HPF (0-2)
[2022-07-28] MEDS ORDERED: ACETAMINOPHEN 325 MG TAB PO PRN (16:00)
[2022-07-28] MEDS ORDERED: LACTULOSE 20 GM/30 ML UDCUP PO PRN (16:00)
[2022-07-28] MEDS ORDERED: ONDANSETRON 4MG INJ IVP PRN (16:00)
[2022-07-28] MEDS ORDERED: LABETALOL 20MG SYG IV PRN (16:00)
[2022-07-28] MEDS ORDERED: HYDRALAZINE 20MG/ML VIAL IV PRN (16:00)
[2022-07-28] MEDS: 0.9%NACL 1000ML 1,000 ML IV SCH ×2 (16:00→21:23)
[2022-07-28] MEDS ORDERED: ALBUTEROL 0.083% 2.5 MG/3 ML INH IH PRN (16:00)
[2022-07-28] MEDS: INSULIN HUMULIN R 100 UNIT/ML 3ML SQ SCH ×2 (16:30→21:00)
[2022-07-28 19:30] VITALS: BP 159/60
[2022-07-28] MEDS ORDERED: ROSU5TAB12 PO (20:44)
[2022-07-28] MEDS ORDERED: PIND10TA2 PO (20:44)
[2022-07-28] MEDS ORDERED: RISP0.2515 PO (20:44)
[2022-07-28] MEDS ORDERED: METF-446 PO (20:44)
[2022-07-28] MEDS ORDERED: BUSP10TA3 PO (20:44)
[2022-07-28] MEDS ORDERED: AEC81 PO (20:44)
[2022-07-28] MEDS ORDERED: BENZ0.5T6 PO (20:44)
[2022-07-28] MEDS ORDERED: INSU100I15 SQ (20:44)
[2022-07-28] MEDS ORDERED: INSU3INS3 SQ (20:44)
[2022-07-28] MEDS ORDERED: LINA5TAB PO (20:44)
[2022-07-28] MEDS ORDERED: OMEP40CA21 PO (20:44)
[2022-07-28] MEDS ORDERED: DONE5TAB33 PO (20:44)
[2022-07-28] MEDS ORDERED: GABA-529 PO (20:44)
[2022-07-28] MEDS ORDERED: SERT-440 PO (20:44)
[2022-07-28] MEDS ORDERED: HYDR12.54 PO (20:44)
[2022-07-28] MEDS ORDERED: EVOL140P3 SQ (20:44)
[2022-07-28] MEDS ORDERED: METO50TA18 PO (20:44)
[2022-07-28] MEDS ORDERED: DEXTROSE 50%-WATER 50 ML DISP.SYRIN IV ONE (21:21)
[2022-07-28 23:43] VITALS: BP 142/68
[2022-07-29] MEDS ORDERED: DEXTROSE 50%-WATER 50 ML DISP.SYRIN IV ONE (03:02)
[2022-07-29 03:22] LABS: CREATININE 0.7 mg/dL (0.5-1.5); MAGNESIUM 1.7 mg/dL (1.80-2.40); PHOSPHORUS 2.7 mg/dL (2.5-4.9); POTASSIUM 3.1 mmol/L (3.5-5.1)
[2022-07-29 03:29] LABS: BASOPHILS % (AUTO) 0.7 % (0.0-5.0); EOSINOPHILS % (AUTO) 0.7 % (0.0-8.0); HEMATOCRIT 34.1 % (36-48); LYMPHOCYTES % (AUTO) 28.9 % (21.0-51.0); MEAN CORPUSCULAR HEMOGLOBIN 27.8 pg (27.0-33.0); MEAN CORPUSCULAR HGB CONC 32.6 g/dL (32.0-36.0); MEAN CORPUSCULAR VOLUME 85.3 fL (79-99); MONOCYTES % (AUTO) 8.4 % (3.0-13.0); NEUTROPHILS % (AUTO) 60.5 % (40.0-77.0); PLATELET COUNT (AUTO) 165 K/uL (130-400); RED CELL DISTRIBUTION WIDTH 16.9 % (11.0-15.5)
[2022-07-29 03:37] LABS: B-TYPE NATRIURETIC PEPTIDE 43 pg/mL (0-100)
[2022-07-29] MEDS ORDERED: DEXTROSE 5 % AND 0.9 % NACL 1,000 ML IV SCH (04:00)
[2022-07-29 04:02] VITALS: BP 167/71
[2022-07-29] MEDS: INSULIN HUMULIN R 100 UNIT/ML 3ML SQ SCH ×4 (06:34→20:38)
[2022-07-29 07:30] VITALS: BP 163/75
[2022-07-29] MEDS ORDERED: DEXTROSE 50%-WATER 50 ML DISP.SYRIN IV PRN (07:30)
[2022-07-29] MEDS ORDERED: GLUCAGON 1MG KIT 1 MG ML IM PRN (07:30)
[2022-07-29] MEDS ORDERED: MAGNESIUM 2GM PREMIX 50ML 50 ML IV PRN (07:30)
[2022-07-29] MEDS ORDERED: POTASSIUM CHLORIDE 10% ELIXIR 20 MEQ/15 ML UDCUP PO PRN (07:30)
[2022-07-29] MEDS ORDERED: POTASSIUM CHLORIDE 20MEQ/100ML 100 ML IV PRN (07:30)
[2022-07-29 07:36] LABS: HEMOGLOBIN A1C 6.4 % (4.0-6.0)
[2022-07-29] MEDS ORDERED: LINAGLIPTIN 5 MG TABLET PO SCH (09:00)
[2022-07-29] MEDS: PANTOPRAZOLE 40 MG TAB DR PO SCH (09:23)
[2022-07-29] MEDS: SERTRALINE HCL 50 MG TABLET PO SCH (09:23)
[2022-07-29] MEDS: LOSARTAN 100 MG TABLET PO SCH (09:23)
[2022-07-29] MEDS: BUSPIRONE HCL 5 MG TABLET PO SCH ×3 (09:23→20:41)
[2022-07-29] MEDS: METOPROLOL TARTRATE 50 MG TAB PO SCH ×2 (09:23→20:37)
[2022-07-29] MEDS: ASPIRIN 81 MG EC TAB PO SCH (09:23)
[2022-07-29] MEDS: GABAPENTIN 100 MG CAPSULE PO SCH ×4 (09:24→20:41)
[2022-07-29] MEDS: AMLODIPINE 5 MG TAB PO SCH (09:24)
[2022-07-29] MEDS: HYDROCHLOROTHIAZIDE 25 MG TABLET PO SCH (09:24)
[2022-07-29] MEDS: CEFEPIME HCL 1 GM VIAL IV SCH (09:25)
[2022-07-29 11:30] VITALS: BP 177/83
[2022-07-29 15:30] VITALS: BP 183/77
[2022-07-29] MEDS: KCL 20 MEQ ERTAB PO PRN ×2 (17:32→21:14)
[2022-07-29 19:50] VITALS: BP_DIAS 66
[2022-07-29] MEDS ORDERED: ATORVASTATIN 10 MG TABLET PO SCH (21:00)
[2022-07-29] MEDS ORDERED: INSULIN GLARGINE 100 UNITS/ML 10 ML VIAL SQ SCH (21:00)
[2022-07-29] MEDS ORDERED: ROPINIROLE HCL 0.25 MG TABLET PO SCH (21:00)
[2022-07-29] MEDS ORDERED: BENZTROPINE 0.5MG TAB PO SCH (21:00)
[2022-07-29] MEDS ORDERED: DONEPEZIL HCL 5 MG TAB PO SCH (21:00)
[2022-07-29 23:55] VITALS: BP 174/71
[2022-07-30] MEDS: KCL 20 MEQ ERTAB PO PRN (00:19)
[2022-07-30 04:10] VITALS: BP 133/53
[2022-07-30 05:55] LABS: HEMATOCRIT 34.1 % (36-48); MEAN CORPUSCULAR HEMOGLOBIN 27.7 pg (27.0-33.0); MEAN CORPUSCULAR HGB CONC 32.3 g/dL (32.0-36.0); MEAN CORPUSCULAR VOLUME 85.9 fL (79-99); RED BLOOD CELL COUNT(AUTO) 3.97 MIL/uL (4.00-5.50); WHITE BLOOD COUNT (AUTO) 5.6 K/uL (4.8-10.8)
[2022-07-30 06:37] LABS: CREATININE 0.8 mg/dL (0.5-1.5); MAGNESIUM 1.8 mg/dL (1.80-2.40); PHOSPHORUS 2.3 mg/dL (2.5-4.9); POTASSIUM 4.8 mmol/L (3.5-5.1)
[2022-07-30] MEDS: INSULIN HUMULIN R 100 UNIT/ML 3ML SQ SCH ×3 (06:48→16:12)
[2022-07-30 08:00] VITALS: BP 152/72
[2022-07-30] MEDS: BUSPIRONE HCL 5 MG TABLET PO SCH ×2 (08:40→13:16)
[2022-07-30] MEDS: HYDROCHLOROTHIAZIDE 25 MG TABLET PO SCH (08:41)
[2022-07-30] MEDS: SERTRALINE HCL 50 MG TABLET PO SCH (08:44)
[2022-07-30] MEDS: GABAPENTIN 100 MG CAPSULE PO SCH ×2 (08:45→13:15)
[2022-07-30] MEDS: AMLODIPINE 5 MG TAB PO SCH (08:46)
[2022-07-30] MEDS: ASPIRIN 81 MG EC TAB PO SCH (08:46)
[2022-07-30] MEDS: LOSARTAN 100 MG TABLET PO SCH (08:46)
[2022-07-30] MEDS: METOPROLOL TARTRATE 50 MG TAB PO SCH (08:47)
[2022-07-30] MEDS: CEFEPIME HCL 1 GM VIAL IV SCH (08:47)
[2022-07-30] MEDS: PANTOPRAZOLE 40 MG TAB DR PO SCH (08:47)
[2022-07-30] MEDS ORDERED: ENOXAPARIN SODIUM 40 MG/0.4 ML SYRINGE SQ SCH (09:00)
[2022-07-30] MEDS ORDERED: INSULIN GLARGINE 100 UNITS/ML 10 ML VIAL SQ SCH (09:00)
[2022-07-30 11:00] VITALS: BP 163/76
[2022-07-30] MEDS ORDERED: SODIUM CHLORIDE 1,000 MG TAB PO SCH (11:00)
[2022-07-30] MEDS: METFORMIN HCL 500 MG TAB.SR.24H PO SCH ×2 (11:12→16:16)
[2022-07-30 16:00] VITALS: BP 182/70
[2022-07-30] MEDS ORDERED: NACL1 PO (16:56)
[2022-07-30] MEDS ORDERED: INSLAN SQ (16:56)
== END 2022-07-30 18:50 | disposition home or self-care (01) ==
LOC: EDH 12:24 → EDHIP 15:42 → 3AH 19:38
PROVIDERS: ADMIT Internal Medicine; ATTEND Internal Medicine
DX: K52.9 Noninfective gastroenteritis and colitis, unspecified (principal); Z20.822 Contact with and (suspected) exposure to COVID-19; E87.1 Hypo-osmolality and hyponatremia; E11.649 Type 2 diabetes mellitus with hypoglycemia without coma; K21.9 Gastro-esophageal reflux disease without esophagitis; E86.0 Dehydration; E11.65 Type 2 diabetes mellitus with hyperglycemia; I10 Essential (primary) hypertension; F31.9 Bipolar disorder, unspecified; F41.8 Other specified anxiety disorders; Z91.119 Patient's noncompliance with dietary regimen due to unspecified reason; Z91.148 Patient's other noncompliance with medication regimen for other reason; Z91.199 Patient's noncompliance with other medical treatment and regimen due to unspecified reason; Z95.1 Presence of aortocoronary bypass graft
CPT/HCPCS: 96361 ×2; 96365; 96366 ×2; 96375 ×2; 99285; 80053; 82803; 83690; 85025 ×2; 87040 ×2; 87880; 87804 ×2; 82948 ×14; 83605 ×2; 82010; 81001; 36415 ×3; 87635; 71045; 74177; 93005; 96376 ×2; 96372 ×2; 96367; 83036; 83735 ×2; 84100 ×2; 80048 ×2; 83880; 97161; 97039 ×2; 36600; 84145; 85027; 97116; G0378 ×50; C9803; J7030 ×2; J7070 ×2; J2543; Q9967; J3475; J0692 ×2; J1815; J1650

== ENCOUNTER → 2022-11-30 | Outpatient (CLI) | payer OTHER, MEDICARE ==
[~2022-11-30] MED LIST changes: +AEC81 PO; +BUSP10TA3 PO; -BUSP15TA3 PO; -CEPH500B PO; -CYCL5TAB PO; +DONE5TAB33 PO; +EVOL140P3 SQ; +HYDR12.54 PO; -INS7030 SQ; +INSLAN SQ; -METO50 PO; +METO50TA18 PO; +NACL1 PO; +PIND10TA2 PO; +RISP0.2515 PO; +ROPI0.2535 PO; -ROPI0.257 PO
== END | disposition home or self-care (01) ==
LOC: RAH 07:48
PROVIDERS: ATTEND Internal Medicine Cardiovascular Disease
DX: R79.9 Abnormal finding of blood chemistry, unspecified (principal); Z90.49 Acquired absence of other specified parts of digestive tract
CPT/HCPCS: 76705

== ENCOUNTER → 2022-12-30 | Outpatient (CLI) | payer OTHER, MEDICARE ==
[2022-12-31 12:25] LABS: ALBUMIN 3.2 g/dL (3.5-5.0); BILIRUBIN,DIRECT 0.2 mg/dL (0.0-0.3); BILIRUBIN,TOTAL 0.6 mg/dL (0.2-1.0); CREATININE 0.8 mg/dL (0.5-1.5); MAGNESIUM 1.6 mg/dL (1.80-2.40); POTASSIUM 4.5 mmol/L (3.5-5.1); TOTAL PROTEIN, SERUM 7.2 g/dL (6.0-8.3)
== END | disposition home or self-care (01) ==
LOC: LAB 09:06
PROVIDERS: ATTEND Internal Medicine Cardiovascular Disease
DX: R94.5 Abnormal results of liver function studies (principal)
CPT/HCPCS: 36415; 80048; 80076; 83735

== ENCOUNTER → 2023-02-09 | Outpatient (CLI) | payer OTHER, MEDICARE ==
[2023-02-09 12:12] LABS: CREATININE 0.9 mg/dL (0.5-1.5); MAGNESIUM 1.8 mg/dL (1.80-2.40); POTASSIUM 4.8 mmol/L (3.5-5.1)
== END | disposition home or self-care (01) ==
LOC: LAB 09:29
PROVIDERS: ATTEND Internal Medicine Cardiovascular Disease
DX: I10 Essential (primary) hypertension (principal); E83.42 Hypomagnesemia; E87.1 Hypo-osmolality and hyponatremia; Z79.899 Other long term (current) drug therapy
CPT/HCPCS: 36415; 80048; 82306; 83735

== ENCOUNTER → 2023-07-01 | Outpatient (CLI) | payer OTHER, MEDICARE ==
[~2023-07-01] MED LIST changes: +BENZ0.5T44 PO; -BENZ0.5T6 PO; +RISP-30 PO; -RISP1TAB98 PO
[2023-07-01 15:19] LABS: CREATININE 0.8 mg/dL (0.5-1.0); POTASSIUM 3.9 mmol/L (3.5-5.1)
== END | disposition home or self-care (01) ==
LOC: LAB 14:11
PROVIDERS: ATTEND Internal Medicine Cardiovascular Disease
DX: R07.89 Other chest pain (principal)
CPT/HCPCS: 36415; 80048

== ENCOUNTER → 2024-04-03 | Outpatient (CLI) | payer OTHER, MEDICARE ==
[~2024-04-03] MED LIST changes: +CHOL2000 PO; +DONE10TA43 PO; -DONE5TAB33 PO; -GABA-529 PO; +GABA300C PO; -HYDR12.54 PO; +INSU100I15 SQ; +MAGN400C PO; -METO50TA18 PO; -NACL1 PO; +POTA2TAB6 PO; -RISP-30 PO; -ROPI0.2535 PO; -ROSU5TAB12 PO; +SEMA2PEN SQ
[2024-04-03 13:18] LABS: ALBUMIN 3.3 g/dL (3.5-5.0); BILIRUBIN,TOTAL 0.5 mg/dL (0.2-1.0); CREATININE 0.7 mg/dL (0.5-1.0); MAGNESIUM 1.5 mg/dL (1.80-2.40); POTASSIUM 5.2 mmol/L (3.5-5.1); TOTAL PROTEIN, SERUM 7.2 g/dL (6.0-8.3)
== END | disposition home or self-care (01) ==
LOC: LAB 09:12
PROVIDERS: ATTEND Internal Medicine Cardiovascular Disease
DX: I95.1 Orthostatic hypotension (principal); E78.2 Mixed hyperlipidemia; R07.89 Other chest pain
CPT/HCPCS: 36415; 80053; 80061; 83735

== ENCOUNTER → 2024-04-16 | Outpatient (CLI) | payer OTHER, MEDICARE | END | disposition home or self-care (01) | LOC: LAB 14:08 | PROVIDERS: ATTEND Internal Medicine Cardiovascular Disease | DX: I95.1 Orthostatic hypotension (principal); R07.89 Other chest pain | CPT/HCPCS: 36415; 83735 ==

== ENCOUNTER 2024-11-27 09:00 | Observation (INO) | payer OTHER, MEDICAID ==
[2024-11-23 14:15] LABS: IMMATURE GRANULOCYTE ABSOLUTE 0.02 K/uL (0-1); NUCLEATED RED BLOOD CELLS 0.0 % (0.0-0.19); PLATELET COUNT (AUTO) 135 K/uL (130-400); RED BLOOD CELL COUNT(AUTO) 4.07 MIL/uL (4.00-5.50); RED CELL DISTRIBUTION WIDTH 13.9 % (11.0-15.5); WHITE BLOOD COUNT (AUTO) 6.4 K/uL (4.8-10.8)
[2024-11-23 14:18] VITALS: BP 183/81; PULSE 74; RESP 18; TEMP 97.3
[2024-11-23 14:24] LABS: CREATININE 0.7 mg/dL (0.5-1.0); GLOMERULAR FILTR. RATE CALC 96.0 mL/min (>90); GLUCOSE,RANDOM 310.0 mg/dL (70-105); SODIUM SERUM 132.0 mmol/L (136-145); UREA NITROGEN, BLOOD 11.0 mg/dL (7-18)
[2024-11-23 14:49] LABS: INR 0.97 (0.85-1.15)
--- NOTE | 2024-11-23 16:11 | HMCIMG ---
CHEST 1VW REASON: PRE OP COMPARISON: None. FINDINGS: Single view of the chest was obtained. Lungs are clear. There is mild cardiomegaly with median sternotomy.. There is no pulmonary vascular congestion. Mediastinum and bony thorax appear unremarkable. IMPRESSION: 1. Stable mild cardiomegaly with median sternotomy 2. No evidence of airspace consolidation or pulmonary venous congestion. The study is unchanged from prior study..
--- NOTE | 2024-11-23 20:11 | EKG ---
[facility] Test Date: 2024-11-23 Test Time: 13:52:17 Pat Name: EDWARD GAUTAM Department: [facility] Room: Gender: F Health And Wellness Director: [id number] : 1960 Requested By: GEORGE PIERCE Order Number: [id number] Reading MD: Jazmin Bell Measurements Intervals [place] Rate: 72 P: -15 RI: 168 QRS: 28 QRSD: 99 T: 6 QT: 401 QTc: 439 Interpretive Statements Sinus rhythm Low voltage, precordial leads Compared to ECG 07/28/2022 12:24:27 Low QRS voltage now present Electronically Signed On 11-26-2024 12:38:57 CDT by Jazmin Bell Please click the below link to view image of tracing.
[2024-11-27] VITALS (14 sets, daily range): BP systolic 107–176; BP diastolic 50–83; PULSE 68–82; RESP 14–21; TEMP 97.4–98.3; O2SAT 98–99
[~2024-11-27] VITALS: Ht 149.9 cm; Wt 79.0 kg
[~2024-11-27 09:00] MED LIST changes: -AMLO-257 PO; -BENZ0.5T44 PO; -CHOL2000 PO; +CHOL200013 PO; +CLOP75TA32 PO; -EVOL140P3 SQ; +EVOL140S2 SQ; -INSU100I15 SQ; +INSU100V45 SQ; +MAGN100T PO; -MAGN400C PO; +MEMA5TAB16 PO; +MULT-1258 PO; -OMEP40CA21 PO; -PIND10TA2 PO; +PIND10TA8 PO; -POTA2TAB6 PO; -RISP0.2515 PO; +RISP0.5T46 PO; +SEMA1PEN3 SQ; -SEMA2PEN SQ
--- NOTE | 2024-11-27 09:30 | NUR ---
[employer]TEGRITY: NOTIFIED JACKELYN EGNEL RN FROM HEART CATH REGARDING PATIENTS RASH BOTH BILATERAL GROIN AREA. WILL NOTIFY DR. PIERCE.
--- NOTE | 2024-11-27 12:11 | NUR ---
SKIN INTEGRITY: DR. PIERCE ASSESSED PATIENTS RASH TO BILATERAL GROIN AREA. WILL PROCEED AND GO THROUGH LEFT WRIST.
[2024-11-27] MEDS: 0.9%NACL 1000ML 1,000 ML IV SCH ×2 (12:20→18:52)
[2024-11-27] MEDS ORDERED: HEParin-NS 1,000 UNIT/500 ML 1,000 ML IV ONE (14:42)
[2024-11-27] MEDS ORDERED: LIDOCAINE HCL 400MG/20ML VIAL ONE (14:42)
[2024-11-27] MEDS ORDERED: IOHEXOL 350 MG/ML 100ML INFUS..BTL IV ONE (14:42)
[2024-11-27] MEDS ORDERED: SODIUM BICARB 50MEQ 50ML VIAL 50 ML ONE (14:42)
[2024-11-27] MEDS ORDERED: NITROGLYCERIN 50MG VIAL ONE (14:43)
[2024-11-27] MEDS ORDERED: MIDAZOLAM HCL 1 MG/ML 2ML VIAL ONE (15:11)
--- NOTE | 2024-11-27 17:57 | NUR ---
REPORT TO [facility] 2ND FLOOR
[2024-11-27] MEDS: GABAPENTIN 300 MG CAPSULE PO SCH (21:07)
[2024-11-27] MEDS: PINDOLOL 5 MG TAB PO SCH (21:08)
[2024-11-28] VITALS: BP 127/61; PULSE 76; RESP 20; TEMP 98
[2024-11-28 04:00] VITALS: BP 122/65; PULSE 75; RESP 20; TEMP 98.2
[2024-11-28 04:24] LABS: NUCLEATED RED BLOOD CELLS 0.0 % (0.0-0.19); PLATELET COUNT (AUTO) 123.0 K/uL (130-400); RED BLOOD CELL COUNT(AUTO) 3.84 MIL/uL (4.00-5.50); RED CELL DISTRIBUTION WIDTH 14.6 % (11.0-15.5); WHITE BLOOD COUNT (AUTO) 6.5 K/uL (4.8-10.8)
[2024-11-28 04:26] LABS: CREATININE 0.8 mg/dL (0.5-1.0); GLOMERULAR FILTR. RATE CALC 82.0 mL/min (>90); GLUCOSE,RANDOM 153.0 mg/dL (70-105); SODIUM SERUM 136.0 mmol/L (136-145); UREA NITROGEN, BLOOD 11.0 mg/dL (7-18)
[2024-11-28] MEDS: ASPIRIN 81 MG EC TAB PO SCH (08:12)
[2024-11-28 08:15] VITALS: BP 146/46; PULSE 72; RESP 16; TEMP 98.6
[2024-11-28] MEDS: MAGNESIUM GLYCINATE PO SCH (08:15)
[2024-11-28] MEDS: (Cholecalciferol (Vitamin D3) 50 MCG) PO SCH (08:15)
[2024-11-28] MEDS: MULTIVITAMIN WITH MINERALS TABLET PO SCH (08:20)
[2024-11-28 09:00] VITALS: O2SAT 99
[2024-11-28 12:00] VITALS: BP 148/48; PULSE 74; RESP 16; TEMP 98.3
--- NOTE | 2024-11-28 14:55 | PN ---
Denies dyspnea or chest pain or any neurologic symptoms. No bleeding at catheterization site. Cleared for discharge, follow up in my office 1-2 weeks. We will show angiogram to Dr. Mondragon in the interim. Vitals/Labs Vital Signs Date Time Temp Pulse Resp B/P (MAP) Pulse Ox O2 Delivery O2 Flow Rate FiO2 11/28/24 12:00 98.2 74 16 148/48 98 Room Air 11/28/24 09:00 0 21 Laboratory Tests 11/28/24 03:55 Medications Current Medications Sodium Chloride 1,000 ml @ 0 mls/hr Q0M IV Last administered on 11/27/24at 12:20; Start 11/27/24 at 08:00; Stop 12/27/24 at 07:59 Lidocaine HCl 20 ml STK-MED ONCE .ROUTE; Start 11/27/24 at 14:42; Stop 11/27/24 at 14:42; Status DC Sodium Bicarbonate 50 ml @ As Directed STK-MED ONCE .ROUTE; Start 11/27/24 at 14:42; Stop 11/27/24 at 14:42; Status DC Iohexol 35,000 mg STK-MED ONCE IV; Start 11/27/24 at 14:42; Stop 11/27/24 at 14:42; Status DC Heparin Sodium (Porcine) 10,000 unit STK-MED ONCE .ROUTE; Start 11/27/24 at 14:42; Stop 11/27/24 at 14:43; Status DC Nicardipine HCl 25 mg STK-MED ONCE IV; Start 11/27/24 at 14:42; Stop 11/27/24 at 14:43; Status DC Heparin Sodium/ Sodium Chloride 1,000 ml @ As Directed STK-MED ONCE IV; Start 11/27/24 at 14:42; Stop 11/27/24 at 14:43; Status DC Nitroglycerin 50 mg STK-MED ONCE .ROUTE; Start 11/27/24 at 14:43; Stop 11/27/24 at 14:43; Status DC Fentanyl Citrate 100 mcg STK-MED ONCE .ROUTE; Start 11/27/24 at 15:11; Stop 11/27/24 at 15:12; Status DC Midazolam HCl 2 mg STK-MED ONCE .ROUTE; Start 11/27/24 at 15:11; Stop 11/27/24 at 15:12; Status DC Labetalol HCl 20 mg STK-MED ONCE IV; Start 11/27/24 at 16:19; Stop 11/27/24 at 16:20; Status DC Labetalol HCl 20 mg STK-MED ONCE IV; Start 11/27/24 at 16:33; Stop 11/27/24 at 16:34; Status DC Labetalol HCl 100 mg STK-MED ONCE .ROUTE; Start 11/27/24 at 16:42; Stop 11/27/24 at 16:43; Status DC Sodium Chloride 1,000 ml @ 150 mls/hr Q6H40M IV Last administered on 11/27/24at 21:11; Start 11/27/24 at 17:00; Stop 11/27/24 at 22:59; Status DC Aspirin 81 mg DAILY PO Last administered on 11/28/24at 08:12; Start 11/28/24 at 09:00; Stop 12/28/24 at 08:59 Clopidogrel Bisulfate 75 mg DAILY PO Last administered on 11/28/24at 08:12; Start 11/28/24 at 09:00; Stop 12/28/24 at 08:59 Gabapentin 300 mg BID PO Last administered on 11/28/24at 08:12; Start 11/27/24 at 21:00; Stop 12/27/24 at 20:59 Insulin Glargine 80 units HS SQ Last administered on 11/27/24at 21:18; Start 11/27/24 at 21:00; Stop 12/27/24 at 20:59 Insulin Human Lispro 30 unit NOON SQ; Start 11/28/24 at 12:00; Stop 12/28/24 at 11:59 Losartan Potassium 100 mg HS PO Last administered on 11/27/24at 21:08; Start 11/27/24 at 21:00; Stop 12/27/24 at 20:59 Memantine 5 mg BID PO Last administered on 11/28/24at 08:12; Start 11/27/24 at 21:00; Stop 12/27/24 at 20:59 Buspirone HCl 10 mg TID PO Last administered on 11/28/24at 08:20; Start 11/27/24 at 21:00; Stop 12/27/24 at 20:59 Home Med (Cholecalciferol (Vitamin D3) 50 MCG) DAILY PO; Start 11/28/24 at 09:00; Stop 12/28/24 at 08:59 Donepezil HCl 10 mg HS PO Last administered on 11/27/24at 21:08; Start 11/27/24 at 21:00; Stop 12/27/24 at 20:59 Home Med (Evolocumab (Repatha Syrin... [id number] SQ; Start 12/11/24 at 09:00; Stop 01/10/25 at 08:59 Home Med (Magnesium Glycinate (... DAILY PO; Start 11/28/24 at 09:00; Stop 12/28/24 at 08:59 Multivitamins/ Minerals 1 tab DAILY PO Last administered on 11/28/24at 08:20; Start 11/28/24 at 09:00; Stop 12/28/24 at 08:59 Pindolol 20 mg BID PO Last administered on 11/28/24at 08:15; Start 11/27/24 at 21:00; Stop 12/27/24 at 20:59 Risperidone 0.5 mg BID PO Last administered on 11/27/24at 21:11; Start 11/27/24 at 21:00; Stop 12/27/24 at 20:59 Sertraline HCl 100 mg DAILY PO Last administered on 11/28/24at 08:13; Start 11/28/24 at 09:00; Stop 12/28/24 at 08:59 GEORGE PIERCE MD Nov 28, 2024 14:55
--- NOTE | 2024-11-28 15:01 | NUR ---
DCP: HOME Pt sleeping, daughter Leslie Clark [phone] at bedside. Per daughter, pt lives in her govt housing apt alone. pt goes [facility] daily and daughter is provider 4hrs day. Daughter states pt requires assistance with bathing dressing and grooming. Dgtr does laundry, cleaning, transportation and cooking for pt. Pt uses walker, cane, w/c, shower chair and bsc. No HH or HD services. PCP is chika Perry and uses Katerine Moore for rx needs. Dgtr denies need for SNF, will take pt home a dc. Addendum: 11/28/24 at 1512 by ABBEY SALGADO Amended: Links added.
--- NOTE | 2024-11-28 15:25 | PRN ---
Coronary Arteriogram, Saphenous Vein Graft Angiogram, Internal Mammary Angiogram, Bilateral Cerebral Arteriogram. Indication: Recent TIA, noninvasive evidence of carotid disease, previous coronary bypass and class three dyspnea on exertion. Technique: Because the patient had a rash in the intertriginous areas below her pannus, we attempted cerebral arteriography and coronary arteriography from left radial position but the vessel was diffusely diseased and we could not obtain an adequate return so we did perform the procedure from left femoral. Fortunately, the femoral access over the head of the left humerus was about 5-6 cm below the edge of the rash. We accessed under local anesthetic with conscious sedation using 1 mg Versed and 50 mcg fentanyl, using micropuncture technique and fluoroscopic and ultrasound guidance. A six Maltese sheath was inserted. Left coronary arteriography was carried out with a six Maltese JL4, and after multiple left coronary arteriogram were obtained in multiple projections we exchanged for a six Maltese JR4. With this catheter we could engage the stub of one vein graft but could not identify any others. We exchanged for an IMT and obtain right coronary angiograms in multiple projections, then attempted to cannulate the left subclavian for JOE angiogram. In doing so, we cannulated the common carotid instead and so performed left cerebral arteriography in AP, CROATIAN, left lateral, and JOVEL projections using digital subtraction technique. We then exchanged for a JR4, engaged the subclavian, and exchanged for the IMT and obtained internal mammary angiograms in multiple projections. We then exchanged for a six Maltese Nicholas one with which we engaged the right innominate and performed right carotid and cerebral angiography in AP, JOVEL, right lateral, and CROATIAN projections. We then removed the catheter and obtained hemostasis by use of Perclose with excellent hemostasis and no complications. 180 mL contrast was used for this procedure and no complications occurred. We did not perform ventriculography in the interest of conserving contrast. Results: Coronary Arteriography: This is a right-dominant system in the right coronary supplies the posterior descending and posterolateral branch. There is 20% plaque in the vertical portion of the right coronary which is not obstructive. Previously the origin of the PDA was thought to be significantly narrowed and the vessel had been bypassed, but now there is only 30% plaque at the ostium of the PDA and the posterolateral is free of disease. There is no obvious right coronary vein graft; we can not engage antegrade and we see no evidence of the graft retro grade. The left main is short and heavily calcified but not critically narrowed. It trifurcates into LAD, ramus, and circumflex. The left anterior descending is notable for diffuse 75% narrowing from its origin to the 1st diagonal. There is an internal mammary inserting on the midportion of the LAD just proximal to the 2nd diagonal and it is large and healthy, but after the 2nd diagonal the LAD itself is nearby 85%. Distally this vessel is less than 1.8 mm diameter. From the trifurcation of the left main we observe a large ramus intermedius that courses over the anterolateral wall and approaches the apex. There is 80-90% stenosis at the origin of this ramus. A graft was previously reported to that vessel and we do see vein clips that may be from such a graft, but we do not observe antegrade or retrograde venous flow. The circumflex is notable for 75-80% ostial stenosis. The 1st obtuse marginal is tiny, vestigial. The 2nd obtuse marginal is a large lateral branch that approaches the apex and is narrowed by 75-80% at its origin. This vessel was also previously reported as being grafted but no antegrade or retrograde flow to any graft is observed. Distally the circumflex supplies three small posterolateral branches. Cerebral Arteriography: The left carotid is notable for calcified 20% ostial plaque in the intracerebral vessels on the left are notable for 30% narrowing of the internal carotid just before the siphon. Injection of the left side fills the right anterior cerebral distribution as well as the left hemisphere. The right common carotid and external carotid are free of disease but there is heavily calcified irregular radiolucent 90+% stenosis of the right internal carotid at its origin. The intracerebral vessels on the right side are notable for absence of right-sided fill to the anterior cerebral distribution, which is well collateralized from the left. Conclusions: Two-vessel coronary disease. We do not find any of the three previous vein grafts to be patent at this time. The internal mammary to the LAD is patent but there is distal disease. Critical right internal carotid stenosis. GEORGE PIERCE MD Nov 28, 2024 15:25
[2024-11-28 16:00] VITALS: BP 156/60; PULSE 74; RESP 16; TEMP 98.1
--- NOTE | 2024-11-28 17:15 | NUR ---
NOTE DISCHARGE INSTRUCTIONS GIVEN TO PATIENT AND DAUGHTER, BOTH STATED UNDERSTANDING ALL QUESTIONS ANSWERED.
[2024-12-11] MEDS ORDERED: EVOLOCUMAB 140 MG SQ SCH (09:00)
== END 2024-11-28 17:50 | disposition home or self-care (01) ==
LOC: DAH 09:00 → DAHIP 09:01 → 2DH 18:15
PROVIDERS: ADMIT Internal Medicine Cardiovascular Disease; ATTEND Internal Medicine Cardiovascular Disease
DX: I65.23 Occlusion and stenosis of bilateral carotid arteries (principal); R06.00 Dyspnea, unspecified; R07.89 Other chest pain; Z79.899 Other long term (current) drug therapy; Z98.890 Other specified postprocedural states
CPT/HCPCS: 80048 ×2; 83880; 85025; 85610; 85730; 36415 ×2; 71045; 93005; 36223; 93455; 99156; 99157 ×5; 96360; 96361; 82948 ×2; 85027; C1769; C1894 ×4; C1760 ×2; Q9965 ×2; G0378 ×25; J3010; J3490 ×4; J7030; J1644 ×2; J2250; Q9967; A4215; A4223 ×3; A4554; A4222; A4221; A4663; A4216; A4606